=== PATIENT | female | born 2000 | race Asian ===

== ENCOUNTER 2024-07-12 06:57 | Outpatient (REF) | payer OTHER, SELFPAY ==
--- NOTE | ~2024-07-12 | US_ITS ---
CLINICAL HISTORY: HEAVY BLEEDING WORSEINING CRAMPS W MENSTRUATION US pelvis transabdominal and transvaginal Comparison: None Findings: Transabdominal scanning performed for overall anatomy. Transvaginal scanning performed for additional detail. Anteverted uterus is 6.5 cm length. Normal myometrium. Endometrium 8.8 mm thickness. No lesions. Right ovary 3.3 x 1.8 x 1.6 cm. Left ovary 2.2 x 1.9 x 1.4 cm. Normal color Doppler of both ovaries. No free fluid. IMPRESSION: 1. Normal pelvic ultrasound This document has been electronically signed by: Mando Santos MD on 07/13/2024 08:11:08
== END 2024-07-12 06:58 | disposition home or self-care (01) ==
LOC: HO.UMASIMG 06:57
PROVIDERS: Visit Provider Nurse Practitioner Women's Health
DX: N94.6 Dysmenorrhea, unspecified (principal); N92.0 Excessive and frequent menstruation with regular cycle
CPT/HCPCS: 76830; 76856

== ENCOUNTER → 2024-07-12 10:00 | Outpatient (BNV) | payer OTHER, SELFPAY | PROVIDERS: Visit Provider Specialist | DX: N92.0 Excessive and frequent menstruation with regular cycle (principal) | CPT/HCPCS: 76830; 76856 ==